=== PATIENT | male | born 1990 | race Caucasian/White ===

== ENCOUNTER 2023-09-16 15:17 | Emergency (ER) | payer OTHER, SELFPAY ==
[2023-09-16 15:29] VITALS: BP 150/104
[2023-09-16 16:45] LABS: % Basophils 0.8 % (0-2); % Eosinophils 3.3 % (0-6); % Immature Granulocytes 0.4 % (0-0.5); % Lymphocytes 22.4 % (20.5-51.1); % Monocytes 12.1 % (1.7-9.3); Absolute Basophils 0.1 10^3/uL (0-0.2); Absolute Eosinophils 0.2 10^3/uL (0-0.7); Absolute Lymphocytes 1.6 10^3/uL (1.2-3.4); Absolute Monocytes 0.9 10^3/uL (0.1-0.6); Absolute Neutrophils 4.4 10^3/uL (1.4-6.5); Hematocrit 40.8 % (39.0-52.0); Hemoglobin 14.9 g/dL (13.0-18.0); Mean Corp Hgb Conc. 36.5 g/dL (33.0-37.0); Mean Corpuscular Hgb 32.1 pg (27.0-31.0); Mean Corpuscular Volume 87.9 fL (80.0-94.0); Mean Platelet Volume 10.9 fL (7.4-10.4); Nucleated Red Blood Cells % 0 % (-); Platelet Count 173 10^3/uL (130-400); Red Blood Cell Count 4.64 10^6/uL (4.70-6.10); Red Cell Dist. Width 11.6 % (11.5-14.5); White Blood Cell Count 7.2 10^3/uL (4.8-10.8)
[2023-09-16 16:55] VITALS: BP 146/80
[2023-09-16 16:58] LABS: APTT 29.4 Sec (23.4-35.0)
[2023-09-16 16:59] LABS: ALT (SGPT) 29 U/L (0-50); AST (SGOT) 31 U/L (17-59); Albumin 4.6 g/dl (3.5-5.0); Alkaline Phosphatase 57 U/L (38-126); Blood Urea Nitrogen 14 mg/dl (9-20); Calcium 9.5 mg/dl (8.4-10.2); Carbon Dioxide 28 mmol/L (22-30); Chloride 102 mmol/L (98-107); Glucose 93 mg/dl (70-99); Potassium 4.4 mmol/L (3.5-5.1); Sodium 135 mmol/L (135-145); Total Bilirubin 1.1 mg/dl (0.2-1.3); Total Protein 7.5 g/dl (6.3-8.2); eGFR > 60.00
[2023-09-16 17:10] LABS: Troponin I < 0.012 ng/ml
--- NOTE | 2023-09-16 17:24 | ED.GENMED ---
History of Present Illness
General
Chief Complaint: Chest Pain
Source: patient
Exam Limitations: none
Time Seen by Provider: 09/16/23 16:49
Nursing documentation reviewed up to this point in time: agreed with
Travel History
Have you had any contact with someone who has COVID-19?: No
Do you have any symptoms of coronavirus? Fever > 100 degrees, chills, cough, shortness of breath, sore throat, loss of taste or smell, muscle aches, or headache?: No
History of Present Illness
History of Present Illness:
Patient to ED with complaint of left upper chesft pain. Pain started yesterday. No radiation of pain. Reports pain is worse with deep breathing. [place] SOB at home. Denies fever/chills, n/v/diaphoresis. No history of trauma. Brought self to ED
for eval
Past History
Past History
ED Past Medical History: None
ED Past Surgical History: Orthopedic and Other (lumpectomy upper back.)
Social History
Tobacco: Non-smoker
Alcohol: Occasional
Drug: None
Personal: Single
Living: with family
Employment: Student
Review of Systems
Review of Systems
Allergies reviewed?: Yes
All Other Systems: ROS reviewed and negative except as documented in HPI and ROS
Constitutional: Reports no symptoms
EENT: Reports no symptoms
Respiratory: Reports trouble breathing
Cardiac: Reports chest pain
ABD/GI: Reports no symptoms
: Reports no symptoms
Musculoskeletal: Reports no symptoms
Skin: Reports no symptoms
Neurological: Reports no symptoms
Psychiatric: Reports no symptoms
Phy Exam
General Physical Exam
General Presentation: well appearing and no apparent distress
General age: appears stated age
General Skin: warm and dry
General Habitus: normal
General Mental: alert
Cardiovascular Exam
Cardiovascular Exam: regular rate/rhythm and no edema
Pulmonary Exam
Pulmonary Exam: lungs clear, no respiratory distress, no rales and chest non tender
Musculoskeletal Exam
Musculoskeletal Exam: full ROM and neuro vasc intact
Skin Exam
Skin Exam: normal color, warm/dry and no rash
Psychiatric Exam
Psychiatric Exam: normal mood/affect
Scores
Heart Score for Chest Pain Patients
STEMI patient?: No
History: Slightly or Non-Suspicious
ECG: Normal
Age: </= 45 years
Risk Factors: No Risk Factors
Troponin: </= Normal Limit
Heart Score for Chest Pain Patients: 0
Heart Score Risk: 2.5% MACE over next 6 weeks
Course
Orders/Labs/Results
Orders:
Orders
09/16/23 15:18
EKG [Electrocardiogram (*1)] Urgent
Reason for Study: Chest Pain
09/16/23 15:19
EKG- Treatment ONCE
09/16/23 16:26
CR Chest - 2 Views Urgent
Comment:
Reason For Exam: chest pain
09/16/23 16:29
Complete Blood Count/With Diff Urgent
Comprehensive Metabolic Panel Urgent
D-Dimer Urgent
Comment: ADD ON
PTT Urgent
Troponin I Urgent
09/16/23 17:10
Add On- LAB Urgent
Tests Added?: ddimer
Abnormal Lab Results
09/16/23
16:29
RBC 4.64 L 10^6/uL
(4.70-6.10)
MCH 32.1 H pg
(27.0-31.0)
MPV 10.9 H fL
(7.4-10.4)
Absolute Monos (auto) 0.9 H 10^3/uL
(0.1-0.6)
Monocytes % 12.1 H %
(1.7-9.3)
09/16/23 16:29
09/16/23 16:29
Vital Signs
Initial and Last Documented VS:
Initial Vital Signs
Temp Pulse Resp BP Pulse Ox
97.9 F 89 16 150/104 100
09/16/23 15:29 09/16/23 15:29 09/16/23 15:29 09/16/23 15:29 09/16/23 15:29
Last Documented Vital Signs
Temp Pulse Resp BP Pulse Ox
97.9 F 70 18 155/84 99
09/16/23 15:29 09/16/23 18:09 09/16/23 18:09 09/16/23 18:09 09/16/23 18:09
*Pulse Oximetry
Patient hypoxic: no
*EKG
Interpretation: normal
Rate: normal
Rhythm: sinus
*Critical Care Note
Total Time (30-74mins, 75-104mins- exclusive of procedures): Not Applicable
ED Attending Note
-
Portions of this chart may have been created with voice recognition software.� Occasional wrong word or��sound alike� substitutions may have occurred due to the inherent limitations of voice recognition software.
Discharge Plan
Departure
Patient Disposition: Home (Routine Discharge)
Date of Disposition: 09/16/23
Time of Disposition: 18:11
Patient with high blood pressure during this ER visit?: No
Condition: Good
Covid-19: Not Applicable
Discharge Problem:
Chest pain made worse by breathing
Instructions: Chest Pain That Is Not Caused by the Heart (DC), Chest Pain PCP Follow Up
Prescriptions:
No Action
No Current Medications
Referrals:
UNKNOWN - PT DOES,NOT KNOW [Family Provider] -
Activity Restrictions/Additional Instructions:
Return to the emergency department immediately for any changes in/worsening of your symptoms.
Interventions
Interventions:
*Risk Screen - Suicide Last Done: 09/16/23 15:29
*General Assessment Last Done: 09/16/23 16:54
*Neglect/Abuse Screening Last Done: 09/16/23 15:29
ED- Fall Risk Assessment Last Done: 09/16/23 16:54
*ED COVID-19 Vaccine History Last Done: 09/16/23 15:29
*Nursing Disposition Last Done: 09/16/23 18:14
ED- Cardiac Assessment Last Done: 09/16/23 16:54
Discharge Date and Time
Discharge Date/Time: 09/16/23 18:38
[2023-09-16 18:05] LABS: D-Dimer < 0.27 ug/mlFEU (0.00-0.50)
[2023-09-16 18:09] VITALS: BP 155/84
== END 2023-09-16 18:38 | disposition home or self-care (01) ==
LOC: EMR 15:17
PROVIDERS: EMERGENCY PHYSICIAN Student in an Organized Health Care Education/Training Program
DX: R07.1 Chest pain on breathing (principal)
CPT/HCPCS: 99285; 71046; 80053; 84484; 85025; 85379; 85730; 93005